=== PATIENT | female | born 1945 | race Two or more races ===

== ENCOUNTER 2025-01-10 18:39 | Emergency (ER) | payer OTHER ==
[~2025-01-10] VITALS: Ht 162.6 cm; Wt 61.7 kg
[2025-01-10] MEDS ORDERED: ARBLI10 MG/1 ML PO (19:16)
[2025-01-10] MEDS ORDERED: AMLODIPINE-OLM1 EAC2 (19:16)
[2025-01-10] MEDS ORDERED: TOPROL XL50 M1 PO (19:16)
[2025-01-10] MEDS ORDERED: LIPITOR80 MG PO (19:16)
[2025-01-10] MEDS ORDERED: FOSAMAX70 MG PO (19:17)
[2025-01-10] MEDS ORDERED: DONEPEZIL HCL OD5 MG PO (19:18)
[2025-01-10] MEDS ORDERED: IPRATROPIUM BROMIDE 0.5 MG/2.5 ML AMPUL.NEB IH SCH ×2 (20:15→22:15)
[2025-01-10] MEDS ORDERED: HYDROCODONE/CHLORPHEN P-STIREX 5 ML ML PO ONE (20:15)
[2025-01-10] MEDS ORDERED: METHYLPREDNISOLONE SOD SUCC 125 MG VIAL IV ONE (20:15)
[2025-01-10 22:06] LABS: BASO % 0.2 % (0.1-1.2); EOS # 0.04 (0.04-0.54); EOS % 0.4 % (0.7-7.0); LYMPH # 0.96 (1.18-3.74); LYMPH % 10.2 % (19.3-53.1); MEAN PLATELET VOLUME 11.50 fl (9.4-12.4); MONO # 0.09 (0.24-0.82); MONO % 1.0 % (4.7-12.5); NEUT # 8.24 (1.56-6.13); NEUT % 88.0 % (34.0-71.1); RED CELL DISTRIBUTION WIDTH 12.8 % (11.6-14.4)
[2025-01-10 22:29] LABS: COVID-19 AG NEGATIVE (NEGATIVE)
[2025-01-10 22:36] LABS: ALT/SGPT 54.0 U/L (12-78); AST/SGOT 22.0 U/L (15-37); BILIRUBIN TOTAL 0.66 mg/dL (0.3-1.2); BUN CREA RATIO 24.0 (7.0-25.0); CREATININE SERUM 1.2 mg/dL (0.55-1.02); GFR 43.34; GLOBULINA 4.2 G/DL (2.4-3.5)
[2025-01-10 22:37] LABS: GLUCOSE FASTING 219.0 mg/dL (65-100); OSMOLALITY SERUM 292.0 MOSM/KG (275-295)
[2025-01-10 23:03] LABS: LYMPHOCYTE MAN 6.0 %
[2025-01-10 23:06] LABS: NEUTROPHILS MAN 90.0 %
[2025-01-10] MEDS ORDERED: ATROVENT HFA12.9 GM IH (23:13)
[2025-01-10] MEDS ORDERED: TUSNEL LIQUID178 ML PO (23:13)
[2025-01-10] MEDS ORDERED: ZITHROMAX500 MG PO (23:13)
[2025-01-10] MEDS ORDERED: BENZONATATE200 M1 PO (23:13)
== END 2025-01-11 00:37 | disposition home or self-care (01) ==
LOC: ER 18:40
PROVIDERS: Behavior Technician
DX: J40 Bronchitis, not specified as acute or chronic (principal); J45.31 Mild persistent asthma with (acute) exacerbation; Z20.822 Contact with and (suspected) exposure to COVID-19